=== PATIENT | male | born 1995 | race Caucasian/White ===

== ENCOUNTER 2022-09-22 12:21 | Emergency (ER) | payer SELFPAY ==
[~2022-09-22] VITALS: Ht 185.4 cm; Wt 72.6 kg
[2022-09-22 13:09] LABS: BASOPHILS % (AUTO) 0.3 % (0.0-2.0); EOSINOPHILS % (AUTO) 0.1 % (0.0-6.0); HEMATOCRIT 47 % (39-51); HEMOGLOBIN 14.7 g/dL (13.5-17.5); LYMPHOCYTES % (AUTO) 11.5 % (20.0-44.0); MEAN CORPUSCULAR HGB CONC 32 g/dl (31.0-36.0); MEAN CORPUSCULAR VOLUME 73 fL (80-96); MONOCYTES # (AUTO) 1.6 K/uL (0.1-1.30); MONOCYTES % (AUTO) 18.3 % (2.0-12.0); NEUTROPHILS % (AUTO) 69.8 % (43.0-81.0); PLATELET COUNT (AUTO) 258 K/uL (150-450); RED BLOOD CELL COUNT(AUTO) 6.36 MIL/uL (4.5-6.0); WHITE BLOOD COUNT (AUTO) 8.6 K/uL (4.3-11.0)
[2022-09-22 13:21] LABS: CALCIUM, SERUM 9.9 mg/dL (8.5-10.1); CARBON DIOXIDE 31 mmol/L (21-32); CHLORIDE 94 mmol/L (98-107); CREATININE 1.3 mg/dL (0.6-1.3); GLUCOSE 114 mg/dL (74-106); UREA NITROGEN, BLOOD 28 mg/dL (7-18)
[2022-09-22 13:26] LABS: SODIUM SERUM 135 mmol/L (136-145)
[2022-09-22 13:28] LABS: POTASSIUM 2.8 mmol/L (3.5-5.1)
[2022-09-22] MEDS ORDERED: ONDANSETRON HCL/PF 4 MG/2 ML VIAL ONE (13:45)
[2022-09-22] MEDS ORDERED: POTASSIUM CHLORIDE 20 MEQ TAB.PRT.SR PO ONE ×2 (13:45→14:00)
[2022-09-22 14:00] LABS: ALBUMIN 4.9 g/dL (3.4-5.0); BILIRUBIN,DIRECT 0.2 mg/dL (0.0-0.2); BILIRUBIN,TOTAL 0.7 mg/dL (0.2-1.0); TOTAL PROTEIN, SERUM 8.7 g/dL (6.4-8.2)
[2022-09-22] MEDS ORDERED: IV NS 0.9% 1,000 ML IV ONE (14:00)
[2022-09-22] MEDS ORDERED: ONDANSETRON HCL/PF 4 MG/2 ML VIAL IV ONE (14:00)
--- NOTE | 2022-09-22 14:24 | NUR ---
PT IN BED A/O X4 C/O N/V FOR 3 DAYS INITAL ONSET OF CHEST PAIN 02/07 20G STARED IN LAC.
[2022-09-22] MEDS ORDERED: MAG HYDROX/AL HYDROX/SIMETH 30 ML UDC ONE (15:14)
[2022-09-22] MEDS ORDERED: FAMOTIDINE (20 MG) 20 MG TABLET ONE ×2 (15:15→15:30)
[2022-09-22] MEDS ORDERED: LIDOCAINE VISCOUS 2% UD 15 ML UDC ONE (15:15)
[2022-09-22] MEDS ORDERED: FAMOTIDINE/PF INJ 20 MG/2 ML VIAL IV ONE ×2 (15:16→15:30)
[2022-09-22] MEDS ORDERED: FAMO-131 PO (15:20)
[2022-09-22] MEDS ORDERED: ONDA4TAB5 PO (15:20)
[2022-09-22] MEDS ORDERED: MAG HYDROX/AL HYDROX/SIMETH 30 ML UDC PO ONE (15:30)
[2022-09-22] MEDS ORDERED: FAMOTIDINE (20 MG) 20 MG TABLET PO ONE (15:30)
[2022-09-22] MEDS ORDERED: LIDOCAINE VISCOUS 2% UD 15 ML UDC MM ONE (15:30)
[2022-09-22 15:38] VITALS: BP 132/78
[2022-09-23 04:31] LABS: EOSINOPHILS % (MANUAL) 1 % (0-4); LYMPHOCYTES % (MANUAL) 15 % (16-48); MONOCYTES % (MANUAL) 19 % (0-11.0); NEUTROPHILS % (MANUAL) 65 (42-76)
== END 2022-09-22 15:38 | disposition home or self-care (01) ==
LOC: ER 12:26
DX: R10.13 Epigastric pain (principal); R07.89 Other chest pain; R11.2 Nausea with vomiting, unspecified; E87.6 Hypokalemia
CPT/HCPCS: 99285; 96374; 71045; 96361; 93005 ×3; 85025; 80048; 83690; 80076; 36415; 84484 ×2; 85007; J2405; J7030; J3490; J7040; J7050